=== PATIENT | female | born 1970 | race Caucasian/White ===

== ENCOUNTER 2024-12-03 10:46 | Outpatient (CLI) | payer OTHER, SELFPAY ==
--- NOTE | 2024-12-03 10:00 | ECG_ITS ---
Test Date: 2024-12-03 11:10:00 Measurements Intervals [place] Rate: 61 P: 57 SC: 180 QRS: 51 QRSD: 93 T: 49 QT: 382 QTc: 387 Interpretive Statements SINUS RHYTHM POSSIBLE LEFT ATRIAL ENLARGEMENT [-0.1mV P WAVE IN V1/V2] WARNING: DATA QUALITY MAY AFFECT INTERPRETATION No previous ECG available for comparison Electronically Signed On 12-03-2024 11:49:51 SPINDLE SETTER by Aditya Lynch M.D.
[2024-12-03 11:50] LABS: Hematocrit 42.4 % (37.0-47.0); Hemoglobin 14.2 g/dL (12.0-15.0)
--- OUTSIDE RECORDS SUMMARY | 2024-12-10 02:52 | XMS_ITS | Clinical Summary ---
Author Organization [facility] Address [address] [place] [address] Care Team Providers Care Floor Renovator Name Role Phone Olga Bonilla Primary Care Provider [phone] Source Comments [facility],non-owned Affiliates and Associated Physician Practices is amultiple site organization consisting of ambulatory clinics and hospital sitesin [place], [place], [place]. This disclosure is being madepursuant to the Care Everywhere program and may not contain all information available regarding this patient. Last updated 18.[facility] Allergies Active Allergy Reactions Criticality Noted Date Comments Phenol-Trimethobenzamide Other Low 07/07/2012 Love's palsy symptoms, , Love's palsy symptoms, Prochlorperazine Other Low 07/07/2012 Love's palsy symptoms Active Problems Problem Noted Date Diagnosed Date Personal history of other malignant neoplasm of skin 02/14/2015 Other seborrheic keratosis 07/07/2012 Melanocytic nevus 07/07/2012 Family History Medical History Relation Name Comments Cancer - Skin, Non Melanoma Father Allergy (Severe) Neg Hx Cancer - Skin, Melanoma Neg Hx Eczema Neg Hx Psoriasis Neg Hx Rashes/Skin Problems Neg Hx Relation Name Status Comments Father Social History Tobacco Use Types Packs/Day Years Used Date Smoking Tobacco: Never Smokeless Tobacco: Never Alcohol Use Standard Drinks/Week Comments Yes 0 (1 standard drink = 0.6 oz pur e alcohol) Sex and Gender Information Value Date Recorded Sex Assigned at Not on file Gender Identity Not on file Sexual Orientation Not on file Plan of Treatment Health Maintenance Due Date Last Done Comments COLOGUARD (AGES 45-75) - COL ON CA SCREENING 1969 COLON MONITORING 1969 COLONOSCOPY - COLON CA SCREENING 1969 CT COLONOGRAPHY - COLON CA SCREENING 1969 Colorectal Cancer Screening 1969 FIT - COLON CA SCREENING 1969 FLEX SIG - COLON CA SCREENING 1969 LIPID TESTING 1969 MAMMOGRAM 1969 PAP SMEAR 1969 HIV SCREENING 1984 HEPATITIS C SCREENING 03/31/1987 DTAP/TDAP/TD VACCINES (1 - Tdap) 1988 HEPATITIS B VACCINE (1 of 3 - 19+ 3-dose series) 1988 PNEUMOCOCCAL VACCINE 50+ (1 of 1 - PCV) 2019 ZOSTER VACCINE (1 of 2) 2019 COVID-19 VACCINE (2023-2 5 season) 2024 INFLUENZA VACCINE (#1) 2024 DEPRESSION SCREENING 11/18/2024 HIB VACCINE Aged Out No longer eligi ble based on patient's age to complete this topic HPV VACCINE Aged Out No longer eligi ble based on patient's age to complete this topic MENINGOCOCCAL (Group B) VACCINE Aged Out No longer eligible based on patient's age to complete this topic MENINGOCOCCAL VACCINE Aged Out No neal sonam eligible based on patient's age to complete this topic PNEUMOCOCCAL VACCINE Aged Out No long er eligible based on patient's age to complete this topic Care Teams Floor Renovator Relationship Specialty Start Date End Date Olga Bonilla DO PCP - General 02/14/15
--- OUTSIDE RECORDS SUMMARY | 2024-12-10 02:52 | XMS_ITS | Encounter Summary ---
Author Organization [facility] Address [address] [place] [address] Care Team Providers Care Survey Operations Director Name Role Phone Gian Gonsalves MD Primary Care Provider [phone] Encounter Details Date Type Department Care Team (Late st Contact Info) Description 08/04/1998 Outpatient Historical [facility] Internal Medicine - [facility] [address] [place] [address] Gian Helton MD [address] [facility] [address] [place] [address] Social History Tobacco Use Types Packs/Day Years Used Date Smoking Tobacco: Never Assessed Comments Unknown Sex and Gender Information Value Date Recorded Sex Assigned at Not on file Legal Sex Female 4:35 AM ALUMINUM WELDER Gender Identity Not on file Sexual Orientation Not on file documented as of this encounter Plan of Treatment Not on file documented as of this encounter Visit Diagnoses Not on filedocumented in this encounter Additional Health Concerns Infection Onset Date Last Indicated Resolved Time R/O COVID-19 09/28/2020 09/28/2020 09/30/2020 7:16 AM ALUMINUM WELDER documented as of this encounter Care Teams Survey Operations Director Relationship Specialty Start Date End Date Gian Gonsalves MD [address] [place] [address] PCP - General Internal Medicine 12/12/15 documented as of this encounter
--- OUTSIDE RECORDS SUMMARY | 2024-12-10 02:52 | XMS_ITS | Referral Summary ---
Author Organization [facility] Address [address] [place] [address] Care Team Providers Care Nutritionists Name Role Phone Olga Bonilla Primary Care Provider [phone] Source Comments [facility],non-owned Affiliates and Associated Physician Practices is amultiple site organization consisting of ambulatory clinics and hospital sitesin [place], [place], [place] and [place]. This disclosure is being madepursuant to the Care Everywhere program and may not contain all information available regarding this patient. Last updated 18.[facility] Allergies Active Allergy Reactions Criticality Noted Date Comments Phenol-Trimethobenzamide Other Low 07/07/2012 Love's palsy symptoms, , Love's palsy symptoms, Prochlorperazine Other Low 07/07/2012 Love's palsy symptoms Active Problems Problem Noted Date Diagnosed Date Personal history of other malignant neoplasm of skin 02/14/2015 Other seborrheic keratosis 07/07/2012 Melanocytic nevus 07/07/2012 Social History Tobacco Use Types Packs/Day Years Used Date Smoking Tobacco: Never Smokeless Tobacco: Never Alcohol Use Standard Drinks/Week Comments Yes 0 (1 standard drink = 0.6 oz pur e alcohol) Sex and Gender Information Value Date Recorded Sex Assigned at Not on file Gender Identity Not on file Sexual Orientation Not on file Plan of Treatment Not on file Care Teams Nutritionists Relationship Specialty Start Date End Date Olga Bonilla DO PCP - General 02/14/15
--- OUTSIDE RECORDS SUMMARY | 2024-12-10 02:52 | XMS_ITS | Encounter Summary ---
Author Organization [facility] Address [address] [place] [address] Care Team Providers Care Electronic Data Processing Auditor Name Role Phone Chad Olga Kacey Primary Care Provider [phone] Encounter Details Date Type Department Care Team (Late st Contact Info) Description 08/29/2022 Lab Requisition [facility] Care DermPath Lab [address] [facility] [place] [address] [place] [address] [facility] [address] [place] [address] Social History Tobacco Use Types Packs/Day Years [...] on file documented as of this encounter Procedures Procedure Name Priority Date/Time Associated Diagnosis Comments DERMATOPATHOLOGY Routine 08/28/2022 12:0 0 AM CDT documented in this encounter Results * DERMATOPATHOLOGY (08/28/2022 12:00 AM CDT) Case Report Dermatopathology Report ? Case: [id number] ? Authorizing Provider: ??Loretta Norman MD ? Collected: ? 08/28/2022 12:00 AM ? Ordering Location: ? [facility] DermPath Lab ?Received: ?08/29/2022 01:08 PM ? Pathologist: ? Ngozi Fernandes MD ? Specimens: ?? A) - Skin, left buttock ? B) - Skin, left lower abdomen ? 2 6:00 PM CDT DERMATOPATHOLOGY LABORATORY Final Diagnosis Specimen A. SKIN, left buttock: COMPOUND MELANOCYTIC NEVUS (D22.72) POST-INFLAMMATORY PIGMENT ALTERATION (L81.9) Specimen B. SKIN, left lower abdomen: INTRADERMAL MELANOCYTIC NEVUS (D22.5) DERMAL FIBROSIS (L90.5) 2 6:00 PM CDT DERMATOPATHOLOGY LABORATORY Clinical History A-B: Nevus R/O Atypia 2 6:00 PM CDT DERMATOPATHOLOGY LABORATORY Gross Description Specimen A: Received is one formalin filled container labeled with the patient's name and designated left buttock. The specimen consists of a shave biopsy measuring [id number]. Jar 0. Specimen B: Received is one formalin filled container labeled with the patient's name and designated left lower abdomen. The specimen consists of a shave biopsy measuring 4q3p8hq. Jar 0. 2 6:00 PM CDT DERMATOPATHOLOGY LABORATORY Microscopic Description Specimen A. SKIN, left buttock: There are nests of melanocytes at the dermal-epidermal junction and within the dermis. MART-1/Melan A highlights that this lesion os mostly nested. Sections also show abundant melanin within melanophages around the superficial vascular plexus. Specimen B. SKIN, left lower abdomen: There are nests of cytologically bland melanocytes within the dermis that mature with depth. The epidermis is unremarkable. There is focal dermal fibrosis. 2 6:00 PM CDT DERMATOPATHOLOGY LABORATORY Disclaimer An external and internal positive and negative controls are appropriate for the histochemical, immunohistochemical and immunofluorescence stain(s) in this case (if any), except where stated explicitly. The performance characteristics of the stain(s) cited in this report were developed and its performance characteristic determined by the Dermatopathology Laboratory at [facility], directed by Dr. Patito Fernandes. These tests need not be, and therefore are not, approved by the [place] Food and Drug Administration. The tests are used for clinical purposes. Billing Codes Specimen Charges Stain Charges 56655 82681 1 1 47218 1 2 6:00 PM CDT DERMATOPATHOLOGY LABORATORY Embedded Images 2 6:00 PM CDT DERMATOPATHOLOGY LABORATORY Pathology/Cytology TISSUE SPECIMEN FROM SKIN / Unknown 08/28/2022 08/29/2022 1:08 PM CDT Miscellaneous samples (specimen) TISSUE SPECIMEN FROM SKIN / Unknown 08/28/2022 08/29/2022 1:08 PM CDT Loretta Norman MD LAB - PATHOLOGY/CYTO LOGY ORDERABLES DERMATOPATHOLOGY LABORATORY [facility] - Department of Dermatology [address], [address] [phone] documented in this encounter Visit Diagnoses Not on filedocumented in this encounter Care Teams Electronic Data Processing Auditor Relationship Specialty Start Date End Date Olga Bonilla DO PCP - General 02/14/15 documented as of this encounter
--- OUTSIDE RECORDS SUMMARY | 2024-12-10 02:52 | XMS_ITS | Encounter Summary ---
Author Organization [facility] Address [address] [place] [address] Care Team Providers Care Vacuum Cleaner Repair Person Name Role Phone Gian Gonsalves MD Primary Care Provider [phone] Encounter Details Date Type Department Care Team (Late st Contact Info) Description 07/09/2008 Outpatient Historical [facility] Eliceo Vergara MD [address] [place] [address] Cervicalgia Social History Tobacco Use Types Packs/Day Years Used Date Smoking Tobacco: Never Alcohol Use Standard Drinks/Week Comments Yes 0 (1 standard drink = 0.6 oz pur e alcohol) Rarely Comments No Sex and Gender Information Value Date Recorded Sex Assigned at Not on file Legal Sex Female 4:35 AM HAIR MACHINE OPERATOR Gender Identity Not on file Sexual Orientation Not on file documented as of this encounter Plan of Treatment Not on file documented as of this encounter Visit Diagnoses Diagnosis Cervicalgia documented in this encounter Additional Health Concerns Infection Onset Date Last Indicated Resolved Time R/O COVID-19 09/28/2020 09/28/2020 09/30/2020 7:16 AM HAIR MACHINE OPERATOR documented as of this encounter Care Teams Vacuum Cleaner Repair Person Relationship Specialty Start Date End Date Gian Gonsalves MD [address] [place] [address] PCP - General Internal Medicine 12/12/15 documented as of this encounter
--- OUTSIDE RECORDS SUMMARY | 2024-12-10 02:52 | XMS_ITS | Encounter Summary ---
Author Organization [facility] Address [address] [place] [address] Care Team Providers Care Senior Cisco Network Engineer Name Role Phone Chad Olga Kacey Primary Care Provider [phone] Encounter Details Date Type Department Care Team (Late st Contact Info) Description 03/03/2021 Lab Requisition [facility] Care DermPath Lab [address] [facility] [place] [address] [place] [address] [facility] [address] [place] [address] Social History Tobacco Use Types [...] Priority Date/Time Associated Diagnosis Comments DERMATOPATHOLOGY Routine 03/01/2021 3:33 AM CDT documented in this encounter Results * DERMATOPATHOLOGY (03/01/2021 3:33 AM CDT) Case Report Dermatopathology Report ? Case: [id number] ? Authorizing Provider: ??Loretta Norman MD ? Collected: ? 03/01/2021 03:33 AM ? Ordering Location: ? [facility] DermPath Lab ?Received: ?03/03/2021 08:04 AM ? Pathologist: ? Ngozi Fernandes MD ? Specimen: ?Skin, medial thigh ? 1 1:30 PM CDT DERMATOPATHOLOGY LABORATORY Final Diagnosis Specimen A. SKIN, medial thigh: ACUTE TO SUBACUTE SPONGIOTIC DERMATITIS WITH EOSINOPHILS (L30.8) (see microscopic description and comment) 1 1:30 PM CDT DERMATOPATHOLOGY LABORATORY Clinical History ACD vs other. 1 1:30 PM CDT DERMATOPATHOLOGY LABORATORY Gross Description Specimen A: Received is one formalin filled container labeled with the patient's name and designated medial thigh. The specimen consists of a punch biopsy measuring [id number], bisected. Jar 0. 1 1:30 PM CDT DERMATOPATHOLOGY LABORATORY Microscopic Description Specimen A. SKIN, medial thigh: There is focal parakeratosis and spongiosis. In the dermis there is a mainly superficial perivascular lymphohistiocytic inflammatory infiltrate with eosinophils. COMMENT: The histological differential diagnosis includes a contact dermatitis and an eczematous drug eruption. 1 1:30 PM CDT DERMATOPATHOLOGY LABORATORY Disclaimer An external and internal positive and negative controls are appropriate for the histochemical, immunohistochemical and immunofluorescence stain(s) in this case (if any), except where stated explicitly. The performance characteristics of the stain(s) cited in this report were developed and its performance characteristic determined by the Dermatopathology Laboratory at [facility], directed by Dr. Patito Fernandes. These tests need not be, and therefore are not, approved by the [place] Food and Drug Administration. The tests are used for clinical purposes. Billing Codes Specimen Charges Stain Charges 86909 1 1 1:30 PM CDT DERMATOPATHOLOGY LABORATORY Embedded Images 1 1:30 PM CDT DERMATOPATHOLOGY LABORATORY Pathology/Cytolo gy TISSUE SPECIMEN FROM SKIN / Unknown 03/01/2021 3:33 AM CDT 03/03/2021 8:04 AM CDT Loretta Norman MD LAB - PATHOLOGY/CYTO LOGY ORDERABLES DERMATOPATHOLOGY LABORATORY [facility] [place] [facility] - Department of Dermatology [facility] Specialized Medicine [address] [place] [address], [address] [phone] documented in this encounter Visit Diagnoses Not on filedocumented in this encounter Care Teams Senior Cisco Network Engineer Relationship Specialty Start Date End Date Olga Bonilla DO PCP - General 02/14/15 documented as of this encounter
--- OUTSIDE RECORDS SUMMARY | 2024-12-10 02:52 | XMS_ITS | Patient Health Summary ---
Author Organization [facility] Address [address] [place] [address] Care Team Providers Care Biomedical Specialist Name Role Phone Olga Bonilla Primary Care Provider [phone] [facility] from [facility],non-owned Affiliates and Associated Physician Practices is amultiple site organization consisting of ambulatory clinics and hospital sitesin [place], [place], [place]. This disclosure is being madepursuant to the Care Everywhere program and may not contain all information available regarding this patient. Last updated 18.[facility] Allergies * Phenol-Trimethobenzamide(Other) -Low Criticality * Prochlorperazine(Other) -Low Criticality Active Problems Problem Noted Date Diagnosed Date [...] on file Sexual Orientation Not on file Procedures * DERMATOPATHOLOGY(Performed 08/28/2022) * DERMATOPATHOLOGY(Performed 03/01/2021) * DERMATOPATHOLOGY(Performed 02/02/2019) * DERMATOPATHOLOGY(Performed 12/30/2017) * DERMATOPATHOLOGY(Performed 05/19/2013) * DERMATOPATHOLOGY(Performed 07/07/2012) Results * DERMATOPATHOLOGY (08/28/2022 12:00 AM CDT) Only the most recent of6 resultswithin the time period is included. Case Report Dermatopathology Report ? Case: [id number] ? Authorizing Provider: ??Loretta Norman MD ? Collected: ? 08/28/2022 12:00 AM ? Ordering Location: ? [facility] DermPath Lab ?Received: ?08/29/2022 01:08 PM ? [...] (D22.5) DERMAL FIBROSIS (L90.5) 2 6:00 PM T DERMATOPATHOLOGY LABORATORY Clinical History A-B: Nevus R/O Atypia 2 6:00 PM CDT DERMATOPATHOLOGY LABORATORY Gross Description Specimen A: Received is one formalin filled container labeled with the patient's name and designated left buttock. The specimen consists of a shave biopsy measuring [id number]. Jar 0. Specimen B: Received is one formalin filled container labeled with the patient's name and designated left lower abdomen. The specimen consists of a shave biopsy measuring 2e2o8pj. Jar 0. 2 6:00 PM CDT DERMATOPATHOLOGY [...] is unremarkable. There is focal dermal fibrosis. 6:00 PM CDT DERMATOPATHOLOGY LABORATORY Disclaimer An external and internal positive and negative controls are appropriate for the histochemical, immunohistochemical and immunofluorescence stain(s) in this case (if any), except where stated explicitly. The performance characteristics of the stain(s) cited in this report were developed and its performance characteristic determined by the Dermatopathology Laboratory at [facility], directed by Dr. Patito Fernandes. These tests need not be, and therefore are not, approved by the [place] Food and Drug Administration. The tests are used for clinical purposes. Billing Codes Specimen Charges Stain Charges 78589 75854 1 1 36429 1 2 6:00 PM CDT DERMATOPATHOLOGY LABORATORY Embedded Images 2 6:00 PM CDT DERMATOPATHOLOGY LABORATORY Pathology/Cytology TISSUE SPECIMEN FROM SKIN / Unknown 08/28/2022 08/29/2022 1:08 PM CDT Miscellaneous samples (specimen) TISSUE SPECIMEN FROM SKIN / Unknown 08/28/2022 08/29/2022 1:08 PM CDT Loretta Norman MD LAB - PATHOLOGY/CYTO LOGY ORDERABLES DERMATOPATHOLOGY LABORATORY [facility] - Department of Dermatology [facility] Specialized Medicine [address] [place] [address], [address] [phone] Care Teams Biomedical Specialist Relationship Specialty Start Date End Date Olga Bonilla DO PCP - General 02/14/15
--- OUTSIDE RECORDS SUMMARY | 2024-12-10 02:52 | XMS_ITS | Data Portability ---
Author Organization [facility], Main Office Address [address] [place] [address] Assessment Encounter Date Assessment Date Assessment LastModified by Organization Details LastModified Time 07/02/2023 07/02/2023 Annual gynecological exam performed. Patient will come back in a year unless there are new symptoms. Not available 07/02/2023 10:30:53 Plan of Treatment Reminders Order Date Submit Date Provider Last Modified By Organization Details Last Modified Time Details Appointments PCP WELL WOMAN 025 11:30AM DANDRE FERRER NP Not available Not available Not available Lab None recorde d. Referral None recorde d. Procedures None recorde d. Surgeries None recorde d. Imaging None recorde d. Medication Orders None recorde d. Patient TargetsNo targets recorded. Patient Instructions Encounter Date Encounter Id Patient Instructions Last Modified By Organization Details Last Modified Time 07/02/2023 [id number] Mammogram today, schedule BMD, Pap today [email or web address] Not available 07/02/2023 22:09:17 Discussed genera l health and wellness. Likes pellets and doing well. Labs monitored. [email or web address] Not available 07/02/2023 22:08:08 Reason for Referral None Reported. Results Created Date Observation Date Name Description Value Unit Range Abnormal Flag Note LastModifiedBy Organization Detail LastModifiedTime 07/02/2007/04/2023 THINP REP TIS PAP AND HPV MRNA E6/E7 WITH REFLE X TO HPV 16,18 /45 clinical information: normal None given Not Available [employer] [facility] [address] [address], [place], [address], 07/04/2023 11:20:28 07/02/202023 THINP REP TIS PAP AND HPV MRNA E6/E7 WITH REFLE X TO HPV 16,18 /45 LMP: normal NONE GIVEN Not Available [address], [address], 07/04/2023 11:20:28 07/02/20 23 07/04/2023 THINP REP TIS PAP AND HPV MRNA E6/E7 WITH REFLE X TO HPV 16,18 /45 prev. Pap: normal NONE GIVEN Not Available [address] [place], [address], 07/04/2023 11:20:28 07/02/20 23 07/04/2023 THINP REP TIS PAP AND HPV MRNA E6/E7 WITH REFLE X TO HPV 16,18 /45 prev. BX: normal NONE GIVEN Not Available [address], [address], 07/04/2023 11:20:28 07/02/20 23 07/04/2023 THINP REP TIS PAP AND HPV MRNA E6/E7 WITH REFLE X TO HPV 16,18 /45 source: normal Vagin a Not Available [address], [address], 07/04/2023 11:20:28 07/02/20 23 07/04/2023 THINP REP TIS PAP AND HPV MRNA E6/E7 WITH REFLE X TO HPV 16,18 /45 statement of adequacy: normal SATIS FACTO RY FOR EVALU ATION Not Available [address], [address], 07/04/2023 11:20:28 07/02/20 23 07/04/2023 THINP REP TIS PAP AND HPV MRNA E6/E7 WITH REFLE X TO HPV 16,18 /45 interpretati on/result: normal Cytol ogy Resul ts: Negat chanel for intra epith elial lesio n or crystal strong . Not Available [address] [place], [address], 07/04/2023 11:20:28 07/02/20 23 07/04/2023 THINP REP TIS PAP AND HPV MRNA E6/E7 WITH REFLE X TO HPV 16,18 /45 comment: normal This Pap test has been evalu ated with comppartha sullivan [employer] ology . Not Available [place] [address] [place], [address], 07/04/2023 11:20:28 07/02/20 23 07/04/2023 THINP REP TIS PAP AND HPV MRNA E6/E7 WITH REFLE X TO HPV 16,18 /45 cytotechnolo gist: normal MEF, CT( CP) CT scree tiffany locat ion: [place] [address] [place] [address] Not Available [address] [address] [place], [address], 07/04/2023 11:20:28 07/02/20 23 07/04/2023 THINP REP TIS PAP AND HPV MRNA E6/E7 WITH REFLE X TO HPV 16,18 /45 comment EXPLA NATOR Y NOTE: The Pap is a scree tiffany test for cervi huma cance r. It is not a diagn ostic test and is subje ct to false negat chanel and false posit chanel resul ts. It is most relia ble when a satis facto ry sampl e, regul josh obtai silvia, is submi tted with relev ant clini huma findi ngs and histo ry, and when the Pap resul t is evalu ated along with histo elfego and curre nt clini huma infor matio n. Not Available [address] [address] [address], [place], [address], 07/04/2023 11:20:28 07/02/20 23 07/04/2023 THINP REP TIS PAP AND HPV MRNA E6/E7 WITH REFLE X TO HPV 16,18 /45 HPV MRNA E6/E7 Not Detect ed not detect ed normal Metho dolog y: Trans cript ion-M ediat ed Ampli ficat ion This assay detec ts E6/E7 viral messe nger RNA (mRNA ) from 14 high- risk HPV types (16,1 8,31, 33,35 ,39,4 5,51, 52,56 ,58,5 9,66, 68). Cervi huma sourc es are requi red for HPV testi ng. If a vagin al sourc e from a patie nt who has had a total hyste recto my with remov al of cervi x was submi tted, pleas e conta ct the testi ng labor atory for alter nativ e testi ng optio ns. For addit ional infor tamica pfeiffer e refer to http: //[facility] jasmina garcia.annabelle stdia gnost ics.c om/fa q/FAQ 129v1 (This link if provi ded for infor darshana garcia/ educa nicholas richard purpo ses only. ) Not Available [facility] [address] [address], [place], [address], 07/04/2023 11:20:28 07/02/20 23 07/02/2023 MAMMO , scree tiffany, bilat eral, w/ CAD No observ ation record ed. [address], [place], [address], 07/08/2023 14:33:20 10/23/20 23 10/23/2023 bone densi ty RAD rmuckerman [facility] [employer] [id number] 11/03/2023 18:58:20 07/15/20 24 07/08/2024 MAMMO , scree tiffany, bilat eral, w/ CAD No observ ation record ed. [address], [place], [address], 07/30/2024 04:02:15 Result Notes None recorded. Problems Name Problem SNOMED Code Status Onset Date Resolution Date Notes Provider Name and Address Organization Details Recorded Time Reduced libido 6589021 Active 2022 Liz John [facility] 3 09:45:43 Menorrhagia 713633148 Active 2022 [facility] 09:45:51 Osteopenia 867996970 [place] 20[place] [address], [place], [address], [facility] 18:56:49 Problem Notes None recorded. Procedures Surgical History Date Name Laterality Status Provider Name and Address Organization Details Recorded Time 04/12/20 Date of Last Mammogram completed [facility] 06/25/2023 10:14:49 04/12/20 Date of Last Pap Smear completed [facility] 06/25/2023 10:15:42 endometrial ablation completed [facility] 06/25/2023 10:20:34 section completed [facility] 06/25/2023 10:20:43 hysteroscopy completed [facility] 06/25/2023 10:20:54 Dilation and curettage completed [facility] 06/25/2023 10:21:05 Imaging Results Imaging Date Name Status LastModified by Organiz ation Details LastModified Time 07/02/2023 MAMMO, screening, bilateral, w/ CAD completed [place] [address] [facility] [address], [place], [address], 07/08/2023 14:33:20 10/23/2023 bone density completed [facility] [employer] [id number] 11/03/2023 18:58:20 07/08/2024 MAMMO, screening, bilateral, w/ CAD active [place] [address], [place], [address], 07/30/2024 04:02:15 Procedure Notes None recorded. Medical Equipment None Reported. Allergies Allergen ID Allergen Name Allergen Category Reaction Reaction Severity Criticality Documentation Date Start Date Code Code System Note Provider Name and Address Organization Details Recorded Time [id number] 29b50 Compazine medicatio n other Not available Not available 06/25/2023 24164 6 RxNorm bells palsy Not Available Not Available Not Available [id number] 29b50 Tigan medicatio n other Not available Not available 06/25/2023 39208 8 RxNorm bells palsy Not Available Not Available Not Available Medications Name Sig Start Date Stop Date Status Note LastModified by Organization Details LastModified Time spironolacto ne 100 mg tablet Take 1 tablet every day by oral route. 07/01 completed Not Available Not Available Not Available Rosser Thyroid 15 mg tablet active Not Available Not Available No t Available [facility] Thyroid 30 mg tablet Take 1 tablet every day by oral route. active Not Available Not Available No t Available progesterone micronized 100 mg capsule TAKE 1 CAPSULE NIGHTLY active Not Available Not Available No t Available progesterone 100 mg vaginal suppository Insert by vaginal route. active Not Available Not Available No t Available Vitals Date Recorded Body height Body mass index (BMI) Body weight Systolic blood pressure Diastolic blood pressure Provider Name and Address Organization Details Last Updated DateTime 07/02/2023 157.48 cm 22.9 kg/m2 59243.05 g 120 mm[Hg] 62 mm[Hg] [facility] 10:31:13 Social History Question Answer Notes LastModified by Organizat ion Details LastModified Time Tobacco Smoking Status Never Smoker [facility] 06/25/2023 10:19:55 What Is Your Level Of Alcohol Consumption? Occasional Information not available 07/02/2023 How Many Times Per Week Do You Consume Alcohol? 1-2 Times Per Week Information not available 07/02/2023 Are You Deaf Or Do You Have Serious Difficulty Hearing? No Information not available 07/02/2023 How Many Times Per Week Do You Exercise? 5-7 Times Per Week Information not available 07/02/2023 Marital Status Informatio n not available 07/02/2023 What Is Your Relationship Status? Information not available 07/02/2023 Are You Sexually Active? Yes Information not available 07/02/2023 Do You Use Any Illicit Or Recreational Drugs? No Information not available 07/02/2023 Sex: Unknown Functional Status Question Answer Note LastModified by Organization D etails LastModified Time What is your exercise level? Moderate Information not available 07/02/2023 Mental Status None recorded. Family History Relationship Description Onset Age of this Age Resolved Age Notes LastModified by Organization Details LastModified Time Paternal Grandmother History of malignant neoplasm of colon Not available 06/25 10:18:06 Unspecified Relation Family history of Cardiovascul ar disease Not available 06/2023 10:18:22 Unspecified Relation Family history of Hypertension Not available 10:18:38 Medical History Condition Response Decreased Libido Y Menorrhagia Y Gynecological History Statement/Question Response Date of Last Pap Smear 04/12/2022 Date of Last Mammogram 04/12/2022 Obstetrics History GPAL:G 3 P 3 0 0 3 Type Value Full Term 3 Living 3 Total 3 Past Encounters Encounter ID Performer Location Encounter Start Date Encounter Closed Date Diagnosis/Indication Diagnosis SNOMED-CT Code Diagnosis ICD10 Code Diagnosis Note [id number] Mary Brown Main Office [address] [facility] [address] [place] [address] 07/02/2023 10:24:41 07/02/2023 11:11:48 Health Concerns Section Related Observation LastModified by Organization Detai ls LastModified Time None Recorded Concern Status LastModified by Organization Details LastModified Time None Recorded Advance Directives Directive None Recorded Payers Encounter Date Sequence Insurance Name Policy Number Policy Warren Covered Member ID Warren Member ID Guarantor Name 07/02/2023 1 [place] [id number] Mary Dawn [id number] Notes Date Note Type Note Provider Name and Address Organization Details Recorded Time 07/02/2023 text/html Annual GYNReport ed bypatient.History: no gynecologic complaints Urinary symptoms:no hematuria; no incontinence Vulva:no genital lesion Vagina:normal vaginal discharge Breast:no breast pain; no breast lump; no nipple discharge Sexual complaints:no sexual complaints; no pain during intercourse; normal libido Menopausal Symptoms:no menopausal symptoms; normal vaginal lubrication Mary Brown [facility] 07/02/2023 22:09:56 OBGyn Episode Ob Episode Information Episode Created Date Number of Fetuses Patient Bloodtype Patient rh Status Prepregnancy Weight lbs Domestic Partner Domestic Partner Phone Father Name Industrial Technician Status 06/25/20 23 1 CLOSED Fetus Data First Name Last Name Admitted to NICU Weight (g) Sex Living Outcome Pediatric Complications Fetus ID Race Codes Race Delivery Type 3259.96 [phone] Full Term 2916 Low Transvers e - induced Nabeel Calculation Initial Nabeel Date Initial Exam Date Initial Exam Provider Initial Ultrasound Date Last Menstrual Period Date Ultra Sound Weeks Gestation 0 Eighteen To Twenty Week Nabeel Update Ultra Sound Date Fundal Height At Umbil Quickening Date Ultra Sound Latest Weeks Gestation Final Nabeel Confirmed By Final Nabeel Confirmed Date Final Nabeel Date Ultra Sound Latest Days Gestation 0 0 Menstrual History Last Menstrual Date Menses Monthly On Bcp Conception Prior Menses Frequency Hcg Plus Date Menarche Onset Age Delivery Information Delivery Date Delivery Type Labor Anesthesia Weeks Gestation Incision Type Labor Labor Length Hrs Delivered By Post Complications Tubal Sterilization Discharge Date Comments 0 Discharge Information Feeding Method Contraceptive Method Maternal HG B and HCT Levels Ob Episode Information Episode Created Date Number of Fetuses Patient Bloodtype Patient rh Status Prepregnancy Weight lbs Domestic Partner Domestic Partner Phone Father Name Industrial Technician Status 06/25/20 23 1 CLOSED Fetus Data First Name Last Name Admitted to NICU Weight (g) Sex Living Outcome Pediatric Complications Fetus ID Race Codes Race Delivery Type 3345.24 1 Full Term 2915 Low Transvers e - induced Nabeel Calculation Initial Nabeel Date Initial Exam Date Initial Exam Provider Initial Ultrasound Date Last Menstrual Period Date Ultra Sound Weeks Gestation 0 Eighteen To Twenty Week Nabeel Update Ultra Sound Date Fundal Height At Umbil Quickening Date Ultra Sound Latest Weeks Gestation Final Nabeel Confirmed By Final Nabeel Confirmed Date Final Nabeel Date Ultra Sound Latest Days Gestation 0 0 Menstrual History Last Menstrual Date Menses Monthly On Bcp Conception Prior Menses Frequency Hcg Plus Date Menarche Onset Age Delivery Information Delivery Date Delivery Type Labor Anesthesia Weeks Gestation Incision Type Labor Labor Length Hrs Delivered By Post Complications Tubal Sterilization Discharge Date Comments 6 Discharge Information Feeding Method Contraceptive Method Maternal HG B and HCT Levels Ob Episode Information Episode Created Date Number of Fetuses Patient Bloodtype Patient rh Status Prepregnancy Weight lbs Domestic Partner Domestic Partner Phone Father Name Industrial Technician Status 06/25/20 23 1 CLOSED Fetus Data First Name Last Name Admitted to NICU Weight (g) Sex Living Outcome Pediatric Complications Fetus ID Race Codes Race Delivery Type [phone] Full Term 2914 Low Transvers e - induced Nabeel Calculation Initial Nabeel Date Initial Exam Date Initial Exam Provider Initial Ultrasound Date Last Menstrual Period Date Ultra Sound Weeks Gestation 0 Eighteen To Twenty Week Nabeel Update Ultra Sound Date Fundal Height At Umbil Quickening Date Ultra Sound Latest Weeks Gestation Final Nabeel Confirmed By Final Nabeel Confirmed Date Final Nabeel Date Ultra Sound Latest Days Gestation 0 0 Menstrual History Last Menstrual Date Menses Monthly On Bcp Conception Prior Menses Frequency Hcg Plus Date Menarche Onset Age Delivery Information Delivery Date Delivery Type Labor Anesthesia Weeks Gestation Incision Type Labor Labor Length Hrs Delivered By Post Complications Tubal Sterilization Discharge Date Comments 4 Discharge Information Feeding Method Contraceptive Method Maternal HG B and HCT Levels
--- OUTSIDE RECORDS SUMMARY | 2024-12-10 02:52 | XMS_ITS | Encounter Summary ---
Author Organization [facility] Address [address] [place] [address] Care Team Providers Care Facility Administrator Name Role Phone Chad Olga Kacey Primary Care Provider [phone] Encounter Details Date Type Department Care Team (Late st Contact Info) Description 02/03/2019 Lab Requisition [facility] Care DermPath Lab [address] [facility] [place] [address] [place] [address] [facility] [address] [place] [address] Social History Tobacco Use Types [...] Priority Date/Time Associated Diagnosis Comments DERMATOPATHOLOGY Routine 02/02/2019 12:0 0 AM CDT documented in this encounter Results * DERMATOPATHOLOGY (02/02/2019 12:00 AM CDT) Case Report Dermatopathology Report ? Case: [id number] ? Authorizing Provider: ??Loretta Norman MD ? Collected: ? 02/02/2019 12:00 AM ? Pathologist: ? Ngozi Fernandes MD ? Received: ?02/03/2019 02:00 PM ? Specimen: ?Skin, right mid back ? 9 12:23 PM CDT DERMATOPATHOLOGY LABORATORY Final Diagnosis Specimen A. SKIN, right mid back: LENTIGINOUS MELANOCYTIC NEVUS, COMPOUND TYPE, IRRITATED (COMPOUND MELANOCYTIC NEVUS WITH ARCHITECTURAL DISORDER) (D22.5) 9 12:23 PM CDT DERMATOPATHOLOGY LABORATORY Clinical History Atypical nevus R/O MM. 12:23 PM CDT DERMATOPATHOLOGY LABORATORY Gross Description Specimen A: Received is one formalin filled container labeled with the patient's name and designated right mid back. The specimen consists of a shave biopsy measuring [id number]. Jar 0. 12:23 PM CDT DERMATOPATHOLOGY LABORATORY Microscopic Description Specimen A. SKIN, right mid back: This is a compound nevus. There is melanin pigment in the stratum corneum. There is architectural disorder characterized by a lentiginous proliferation of melanocytes between irregular nevus nests of cells along the dermal epidermal junction. There is underlying fibroplasia of the papillary dermis. The intradermal component is bland in appearance and matures with depth. (Compound Jayy's Nevus or Compound Dysplastic Nevus) 9 12:23 PM CDT DERMATOPATHOLOGY LABORATORY Disclaimer An external and internal positive and negative controls are appropriate for the histochemical, immunohistochemical and immunofluorescence stain(s) in this case (if any), except where stated explicitly. The performance characteristics of the stain(s) cited in this report were developed and its performance characteristic determined by the Dermatopathology Laboratory at [facility], directed by Dr. Patito Fernandes. These tests need not be, and therefore are not, approved by the [place] Food and Drug Administration. The tests are used for clinical purposes. Billing Codes Specimen Charges Stain Charges 08704 1 9 12:23 PM CDT DERMATOPATHOLOGY LABORATORY Embedded Images 9 12:23 PM CDT DERMATOPATHOLOGY LABORATORY Pathology/Cytolog y TISSUE SPECIMEN FROM SKIN / Unknown 02/02/2019 02/03/2019 2:00 PM CDT Loretta Norman MD LAB - PATHOLOGY/CYTO LOGY ORDERABLES DERMATOPATHOLOGY LABORATORY [facility] - Department of Dermatology [address] [place] [address] 5th Floor Lab [address] [phone] documented in this encounter Visit Diagnoses Not on filedocumented in this encounter Care Teams Facility Administrator Relationship Specialty Start Date End Date Olga Bonilla DO PCP - General 02/14/15 documented as of this encounter
--- OUTSIDE RECORDS SUMMARY | 2024-12-10 02:52 | XMS_ITS | Encounter Summary ---
Author Organization [employer] Address [address] [place] [address] Care Team Providers Care Cone Tender Name Role Phone Gian Gonsalves MD Primary Care Provider [phone] Encounter Details Date Type Department Care Team (Latest Contact Info) Description 11/29/1999 Inpatient Historical HIS PATIENT IN A BED Tab Alonso MD NO ADDRESS ON FILE Previous delivery, delivered, with or without mention of antepartum condition (Primary Dx) Social History Tobacco Use Types Packs/Day Years Used Date Smoking Tobacco: Never Assessed Comments Unknown Sex and Gender Information Value Date Recorded Sex Assigned at Not on file Legal Sex Female 4:35 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 Gender Identity Not on file Sexual Orientation Not on file documented as of this encounter Plan of Treatment Not on file documented as of this encounter Visit Diagnoses Diagnosis Previous delivery, delivered, with or without mention of antepartum condition- Primary documented in this encounter Additional Health Concerns Infection Onset Date Last Indicated Resolved Time R/O COVID-19 09/28/2020 09/28/2020 09/30/2020 7:16 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 documented as of this encounter Care Teams Cone Tender Relationship Specialty Start Date End Date Gian Gonsalves MD [address] [place] [address] PCP - General Internal Medicine 12/12/15 documented as of this encounter
--- OUTSIDE RECORDS SUMMARY | 2024-12-10 02:52 | XMS_ITS | Encounter Summary ---
Author Organization [facility] Address [address] [place] [address] Care Team Providers Care Equipment Oiler Name Role Phone Gian Gonsalves MD Primary Care Provider [phone] Encounter Details Date Type Department Care Team (Late st Contact Info) Description 07/11/2005 Outpatient Historical [facility] Internal Medicine - [place] [address] [place] [address] Gian Helton MD [address] [facility] [address] [place] [address] Social History Tobacco Use Types Packs/Day Years Used Date Smoking Tobacco: Never Assessed Comments Unknown Sex and Gender Information Value Date Recorded Sex Assigned at Not on file Legal Sex Female 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
--- OUTSIDE RECORDS SUMMARY | 2024-12-10 02:52 | XMS_ITS | Encounter Summary ---
Author Organization [facility] Address [address] [place] [address] Care Team Providers Care Vacuum Extractor Operator Name Role Phone Gian Gonsalves MD Primary Care Provider [phone] Encounter Details Date Type Department Care Team (Late st Contact Info) Description 12/05/[address] [facility] Internal Medicine - [place] [address] [place] [address] Gian Helton MD [address] [place] [address] Social History Tobacco Use Types Packs/Day Years Used Date Smoking Tobacco: Never Assessed Comments Unknown Sex and Gender Information Value Date Recorded Sex Assigned at Not on file Legal Sex Female 4:35 AM FILENET P8 DEVELOPER Gender Identity Not on file Sexual Orientation Not on file documented as of this encounter Progress Notes * Gian Helton MD - 04/13/2008 12:25 PM CDT TIME:11:01 am PATIENT`S HOME PHONE: PATIENT`S WORK PHONE: PATIENT`S INSURANCE: [address] [address] [employer] BLUE [employer] WHO TOOK THE CALL: Rachel Agosto A GENERAL INFORMATION PATIENT STATUS: Established Patient. LAST VISIT: 09/10/05 PCP: ileana. ALTERNATIVE PHONE NUMBER: [phone] or cell [phone] WHO CALLED: Patient called. CURRENT [facility] LIST: [facility] NUMBER: [phone] SECTION 1: pt leaving to go to [employer] agency suggested that they take cipro with them just in case they needed an antibiotic for bacteria-please advise REQUESTED ACTION rebecca 12/05/06 at 11:03 am: MEDICATION REQUEST: Patient wants medications and can not come in. DOCTOR`S RESPONSE: rohini 12/05/06 at 01:09 pm MEDICATIONS: Call in to Pharmacy CIPRO ORAL TABLET 500 MG, 1 Two Times A Day, 14 Dispensed, status: NEW PRESCRIPTION, 12/05/2006. 12/05 =spoke w/ pharm./sk Electronically Signed by: Elaine Samayoa on November documented in this encounter Plan of Treatment Not on file documented as of this encounter Visit Diagnoses Not on filedocumented in this encounter Additional Health Concerns Infection Onset Date Last Indicated Resolved Time R/O COVID-19 09/28/2020 09/28/2020 09/30/2020 7:16 AM FILENET P8 DEVELOPER documented as of this encounter Care Teams Vacuum Extractor Operator Relationship Specialty Start Date End Date Gian Gonsalves MD [address] [place] [address] PCP - General Internal Medicine 12/12/15 documented as of this encounter
--- OUTSIDE RECORDS SUMMARY | 2024-12-10 02:52 | XMS_ITS | Clinical Summary ---
Author Organization [facility] Address [address] [place] [address] Phone Care Team Providers Care Machine Bender Name Role Phone Gian Gonsalves MD Primary Care Provider [phone] Allergies Active Allergy Reactions Criticality Noted Date Comments Prochlorperazine Other (See Comments) 5 Pseudo Love's Palsey Trimethobenzamide Hcl Other (See Comments) 06/19 Pseudo Love's Palsey Medications MULTI-VITAMIN Oral Tab Take 1 Tab by mouth daily. Active VITAMIN E 600 unit Oral Cap Take 600 Units by mouth daily. Active CALCIUM + D 600 (1,500)-200 mg-unit Oral Tab Take 1 Tab by mouth daily. Active cyanocobalamin 1,000 mcg Tablet Take 1,000 mcg by mouth daily. Active zinc gluconate 50 mg Tablet Take by mouth daily. Active progesterone micronized (PROMETRIUM) 100 mg Capsule 07/25/2022 Acti ve Hoffman Thyroid 15 mg tablet Take 15 mg by mouth daily. Patient taking 45mcg 06/11/2022 Active vitamin D3/vitamin K2, MK4, (K2 PLUS D3 ORAL) Take by mouth. Active omega-3 fatty acids-fish oil 300-1,000 mg Capsule Take 1 Capsule by mouth daily. Active Active Problems Problem Noted Date Diagnosed Date Heart murmur 02/22/2016 History of basal cell carcinoma 12/12/2015 Resolved Problems Problem Noted Date Diagnosed Date Resolved Date Arthralgia 07/09/2008 12/12/2015 Neck pain 07/09/2008 12/14/2009 Routine physical examination 07/09/2008 12/12/2015 Routine general medical exam ination at a health care facility 07/11/2005 07/09/2008 Dermatophytosis of nail 07/11/200506/19 Encounters Date Type Department Care Team Description 12/08/2024 External Device Data STL ABSTRACTION Provider, Abstract 11/24/2024 External Device Data STL ABSTRACTION Provider, Abstract 09/16/2024 External Device Data STL ABSTRACTION Provider, Abstract from Last 3 Months Immunizations Immunization Administration Dates Next Due (ADACEL/BOOSTRIX)(10 YR UP) TDAP VACCINE, 0.5ML, IM 08/22/2020,12/14/2009 Family History Medical History Relation Name Comments Arthritis-osteo Brother 2 Healthy Daughter Arthritis-rheumatoid Father Shaan Carmona Diabetes Father Shaan Carmona Parkinson's Disease Father Shaan Carmona Stroke Father Shaan Carmona Heart Disease Maternal Grandfather Lisa Henao Healthy Mother Paula Carmona Diabetes Paternal Grandfather Jaiden Graves Heart Disease Paternal Grandfather Jaiden Carmona Brain Cancer Paternal Grandmother Arthritis-osteo Sister 2 Healthy Son 1 Healthy Son 2 Colon Cancer Neg Hx Relation Name Status Comments Brother 1 Alive Brother 2 Alive Daughter Alive Father Shaan Carmona Maternal Grandfather Lisa Henao Maternal Grandmother Mother Paula Carmona Alive Paternal Grandfather Jaiden Carmona Paternal Grandmother Sister 1 Alive Sister 2 Alive Son 1 Alive Son 2 Alive Social History Tobacco Use Types Packs/Day Years Used Date Smoking Tobacco: Never Passive Smoke Exposure: Past Smokeless Tobacco: Never Tobacco Cessation:Counseling Given: Not Answered Comments:never have used Alcohol Use Standard Drinks/Week Comments Yes 3 (1 standard drink = 0.6 oz pur e alcohol) social drinker Comments No Sex and Gender Information Value Date Recorded Sex Assigned at Not on file 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 Gender Identity Not on file Sexual Orientation Not on file Occupation Industry Job Start Date Job End Date Not on file Not on file Not on file Not on file Last Filed Vital Signs Vital Sign Reading Time Taken Comments Blood Pressure 122/76 05/18/2024 11:02 AM CDT Pulse 58 05/18/2024 11:02 AM CDT Temperature 36.9 ??C (98.4 ??F) 05/18/2024 11:02 AM C DT Respiratory Rate 14 10/03/2020 9:14 AM SCHOOL BUS DRIVER Oxygen Saturation 98% 05/18/2024 11:02 AM CDT Inhaled Oxygen Concentration - - Weight 57.6 kg (127 lb) 05/18/2024 11:02 AM CDT Height 157.5 cm (5' 2 ) 05/18/2024 11:02 AM CDT Body Mass Index 23.23 05/18/2024 11:02 AM CDT Plan of Treatment Health Maintenance Due Date Last Done Comments HEPATITIS B VACCINES (1 of 3 - 19+ 3-dose series) 1988 FIT-DNA Q 3 years 2014 FIT/FOBT Q 1 year 2014 Flex Sig/CT Colonography Q 5 years 2014 ZOSTER VACCINE (1 of 2) 2019 CERVICAL CANCER SCREENING 12/26/20232020, 03/18/2015 (Previously completed), 10/18/2007 INFLUENZA VACCINE (#1) 2024 08/28/2023, 2021 BREAST CANCER SCREENING 07/02/2024 07/02/20 23, 12/21/2020, 03/18/2015 (Previously completed), Additional history exists Preventative Visit- Commercial 11/18/2024 1 , 07/02/2023, 09/04/2022, Additional history exists DTAP/TDAP/TD VACCINES (3 - T d or Tdap) 08/22/2030 08/22/2020, 12/14/2009 COLORECTAL SCREENING 10/03/2030 10/03/2020, 10/03/20 20 Colorectal Cancer Screening 10/03/2030 Procedures Procedure Name Priority Date/Time Associated Diagnosis Comments MAMMO SCREEN BILAT W OR WO CAD Routine 07/02/2023 6:00 PM CDT CERV/VAG CYTO SCREEN PAP W/HPV Routine 12/26/2020 9:06 AM SCHOOL BUS DRIVER Screening for malignant neoplasm of cervix Special screening examination for human papillomavirus (HPV) COLONOSCOPY REPORT 10/03/2020 9: 00 AM SCHOOL BUS DRIVER from Last 3 Months or Most Recently Relevant to Health Maintenance Results * MAMMO SCREEN BILAT W OR WO CAD (07/02/2023 6:00 PM CDT) Anatomical Region Laterality Modality Breast Bilateral Other us Tab Alonso MD MAMMO ORDERABLES Final Resu lt * CERV/VAG CYTO SCREEN PAP W/HPV (12/26/2020 9:06 AM SCHOOL BUS DRIVER) CASE REPORT Gynecologic Cytology Report ? Case: [id number] ? Authorizing Provider: ??Rosa Maria Celaya MD ? Collected: ? 12/26/2020 09:06 AM ? Ordering Location: ? [facility] WIRELESS DEVELOPMENT MANAGER [place] ?? Received: ?12/27/2020 08:05 AM ? [place] ? First Screen: ?Cielo Garcia ? Specimen: ?LB PAP TP AND HPV PROT, Endocervix ? 01/02/2021 3:20 PM [facility] Specimen Adequacy Satisfactory for evaluation, endocervical/hassan sformation zone component absent/insufficie nt 01/02/2021 3:20 PM [facility] Quality Control Expert Interpretation Negative for intraepithelial lesion or malignancy 01/02/2021 3:20 PM [facility] GynLMP 06/03/2017 Lo 01/02/2021 3:20 PM [facility] Quality Control Expert Educational Note 01/02/2021 3:20 PM [facility] Comment:The Pap test is a sc reening test used to aid in the detection of cervical cancer and its precursors. It should not be the sole means by which malignant and premalignant lesions are diagnosed. Both false negative and false positive results may occur. Results must be interpreted in the context of historic and current clinical information. EMBEDDED IMAGE 01/02/2021 3:20 PM [facility] Genital SWAB OF ENDOCERVIX / Unknown Collection / Unknown 12/26/2020 9:06 AM SCHOOL BUS DRIVER 12/27/2020 8:05 AM SCHOOL BUS DRIVER Rosa Maria Celaya MD PATHOLOGY/CYTOLOGY ORDERABLES Final Result [id number] [place] [address] * COLONOSCOPY REPORT (10/03/2020 9:00 AM SCHOOL BUS DRIVER) Narrative Procedure Note Bethel Carrillo MD - 10/03/2020 8:59 AM CST [facility] Endoscopy Patient Name: Mary [place] Procedure Date: 10/03/2020 Date of : 1970 Admit Type: Outpatient Age: 50 Attending MD: Bethel Carrillo MD Procedure: Colonoscopy Indications: Screening for colorectal malignant neoplasm. Patient has had one colonoscopy approximately 25 years ago. No findings per patient report. No family history. Providers: Bethel Carrillo MD Referring MD: Gian Gonsalves MD Medicines: Monitored Anesthesia Care Procedure: Informed consent was obtained for the procedure, including moderate sedation after risks were discussed. Based on the pre-procedure assessment, including review of the patient's medical history, medications, allergies, and review of systems, the patient was deemed to be an appropriate candidate for sedation. A timeout was performed. Continuous ECG monitoring, pulse oximetry, blood pressure monitoring, and direct observation were performed. The Colonoscope was introduced through the anus and advanced to the terminal ileum. The quality of the bowel preparation was excellent. Estimated Blood Loss: Estimated blood loss: none. Findings: The colon appeared normal. The terminal ileum appeared normal. Complications: No immediate complications. Impression: - The entire examined colon is normal. - The examined portion of the ileum was normal. - No specimens collected. Recommendation: - Repeat colonoscopy in 10 years for surveillance. Bethel Carrillo MD 10/03/2020 8:59:21 AM This report has been signed electronically. Number of Addenda: 0 Procedure Date: 10/03/2020 8:25:10 AM [address] [address] Bethel Carrillo MD GI PROCEDURE ORDERABLES Final Result from Last 3 Months or Most Recently Relevant to Health Maintenance Insurance [facility] BLUE ACCESS CHOICE Advance Directives For more information, please contact: [phone] * Full Code (Latest Code Status on File) Date Activated Date Inactivated Comments 10/03/2020 7:54 AM 10/03/2020 11:25 AM Care Teams Machine Bender Relationship Specialty Start Date End Date Gian Gonsalves MD [address] [place] [address] PCP - General Internal Medicine 12/12/15
--- OUTSIDE RECORDS SUMMARY | 2024-12-10 02:52 | XMS_ITS | Encounter Summary ---
Author Organization [facility] Address [address] [place] [address] Care Team Providers Care Spring Setter Name Role Phone Gian Gonsalves MD Primary Care Provider [phone] Encounter Details Date Type Department Care Team (Late st Contact Info) Description 07/11/2005 Outpatient Historical [facility] Internal Medicine - [place] [address] [place] [address] Gian Helton MD [address] [place] [address] Social History Tobacco Use Types Packs/Day Years Used Date Smoking Tobacco: Never Assessed Comments Unknown Sex and Gender Information Value Date Recorded Sex Assigned at Not on file 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
--- OUTSIDE RECORDS SUMMARY | 2024-12-10 02:52 | XMS_ITS | Encounter Summary ---
Author Organization [facility] Address [address] [place] [address] Care Team Providers Care Nurse Practitioner Adult Name Role Phone Gian Gonsalves MD Primary Care Provider [phone] Encounter Details Date Type Department Care Team (Late st Contact Info) Description 06/04/2001 Outpatient Historical [facility] Internal Medicine - [place] [address] [place] [address] Gian Helton MD [address] [place] [address] Social History Tobacco Use Types Packs/Day Years Used Date Smoking Tobacco: Never Assessed Comments Unknown Sex and Gender Information Value Date Recorded Sex Assigned at Not on file 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
--- OUTSIDE RECORDS SUMMARY | 2024-12-10 02:53 | XMS_ITS | Continuity of Care Document ---
Author Organization [facility] Address [address] [place] [address] Phone Care Team Providers Care Cash Shortage Investigator Name Role Phone Brie FRIAS, Kalpesh Unavailable Unavailable Allergies, Adverse Reactions, Alerts Substance Reaction Status Criticality PROCHLORPERAZINE MALEATE Active No Information PROCHLORPERAZINE EDISYLATE Active N o Information prochlorperazine Active No Informat ion TRIMETHOBENZAMIDE HCL Active No Inf ormation Medications Medication Instructions Dosage Effective Dates (start - stop) Status Comments ibuprofen 600 mg tablet take 1 tablet by oral route 3 times every day with food as needed 600 MG - Active FISH OIL (unknown strength) Not Available - Active Procedures Procedure Date POSTOP FOLLOW-UP VISIT RADEX HAND MINIMUM 3 VIEWS POSTOP FOLLOW-UP VISIT RADEX HAND MINIMUM 3 VIEWS RADEX HAND MINIMUM 3 VIEWS POSTOP FOLLOW-UP VISIT POSTOP FOLLOW-UP VISIT OFFICE/OUTPATIENT VISIT NEW Advance Directives Directive Yes / No Effective Date File Name No Information Encounters Encounter Description Practice Location Reason(s) For Visit Diagnoses Date Provider Providers Copied on Encounter [facility] , [address] [facility] [address], [place], [address], [place] tel:[phone] [facility] Displaced fracture of shaft of fourth metacarpal bone, right hand, subsequent encounter for fracture with routine healing 7 Brie Posey. [address] [facility] [address], [place], [place], [id number]. tel:[phone] [facility] , [address] [address], [place], [address], [place] tel:[phone] [facility] [place] Displaced fracture of shaft of fourth metacarpal bone, right hand, subsequent encounter for fracture with routine healing May-2 0-201 7 Petrocelli Kalpesh. [address], [place], [place], [id number]. tel:[phone] [facility] , [address] [address], [place], [address], [place] tel:[phone] [facility] [place] Displaced fracture of shaft of fourth metacarpal bone, right hand, initial encounter for closed fracture Abdifatah-2 0-201 7 Petrocelli Kalpesh. [address], [place], [place], [id number]. tel:[phone] [facility] , [address] [address], [place], [address], [place] tel:[phone] [facility] Displaced fracture of shaft of fourth metacarpal bone, right hand, initial encounter for closed fracture Abdifatah-0 7-201 7 Petrocelli Kalpesh. [address], [place], [place], [id number]. tel:[phone] [facility] , [address] [address], [place], [address], [place] tel:[phone] [facility] Displaced fracture of shaft of fourth metacarpal bone, right hand, initial encounter for closed fracture Abdifatah-0 7-201 7 Petrocelli Kalpesh. [address], [place], [place], [id number]. tel:[phone] OFFICE/OUTPAT IENT VISIT NEW [facility] , [address] [address], [place], [address], [place] tel:[phone] [facility] Right hand painClosed fracture of metacarpal of right hand, initial encounter March-3 0-201 7 Randi Phipps. [address], [place], [place], [address]. tel:[phone] Referring Provider: Gian Forte, [address] [place], [address] . tel:[phone] Family History Family Member Type Diagnosis Age At Onset No Information Payers Payer name Insurance type Covered alliance party ID Marquez garcia(s) Blue Access PPO E2 OT [id number] Social History Type Description Quantity Date Captured Comments Alcohol Use Details Caffeine Use Details Unknown Tobacco Use Status No Information Smoking Status No Information Sex Female Chief Complaint And Reason For Visit No Information Reason For Referral Reason For Referral No Information Plan Of Treatment Date Type Action Status Referral Ordered: RADEX HAND MINIMUM 3 VIEWS RT ordered Referral Ordered: RADEX HAND MINIMUM 3 VIEWS RT hand ordered History Of Present Illness Encounter Date Complaint History Of Prese nt Illness No Information Functional Status Date Functional Assessmen t No Information Instructions Date Instruction Additional Infor mation Rest, ice and elevate. Related t o Displaced fracture of shaft of fourth metacarpal bone, right hand, subsequent encounter for fracture with routine healing Report increased taty n, swelling, numbness or discoloration. Related to Displaced fracture of shaft of fourth metacarpal bone, right hand, subsequent encounter for fracture with routine healing Rest, ice and elevate. Related t o Displaced fracture of shaft of fourth metacarpal bone, right hand, subsequent encounter for fracture with routine healing Report increased taty n, swelling, numbness or discoloration. Related to Displaced fracture of shaft of fourth metacarpal bone, right hand, subsequent encounter for fracture with routine healing Report increased taty n, swelling, numbness or discoloration. Related to Displaced fracture of shaft of fourth metacarpal bone, right hand, initial encounter for closed fracture Home exercise program. Related t o Right hand pain Discussed treatment options Rela raymond to Right hand pain Assessments Type Assessment Date assessment Displaced fracture o f shaft of fourth metacarpal bone, right hand, subsequent encounter for fracture with routine healing Patient Care Teams Name Effective Dates (start - stop) Status Members No Information
== END 2024-12-03 10:47 | disposition home or self-care (01) ==
LOC: ANHSURGERY 10:50
PROVIDERS: Anesthesiology; Visit Provider Surgery Plastic and Reconstructive Surgery
DX: Z01.818 Encounter for other preprocedural examination (principal); Z41.1 Encounter for cosmetic surgery
CPT/HCPCS: 36415; 85014; 85018; 93005

== ENCOUNTER 2024-12-10 00:50 | Day surgery (SDC) | payer OTHER, SELFPAY ==
[2024-12-01 12:31] VITALS: BMI 22.5
--- NOTE | 2024-12-01 12:39 | PC.NURSE ---
Report to the Outpatient Waiting Room, entrance under the green pavilion located off [facility], at time _0600_ on date _[id number]_. Planned Procedure Time: _0730_.? Time changes happen often and if your time is changed the preop area will call you the afternoon before. - You and your visitor will be asked to self-screen and do not enter if you have any COVID symptoms. Please call surgeon if you need to reschedule. - A mask is optional within the hospital at this time. Patients may have clear liquids (water, carbonated beverages, clear teas, apple juice) until 3 hours prior to surgery with a maximum of 20 ounces. - No food from midnight until time of surgery and no smoking. This includes no chewing gum, candy or mints. Take only the following medications with a SIP of water on the morning of surgery: ___thyroid____ DO NOT STOP ANY OF YOUR OTHER PRESCRIPTION MEDICATIONS PRIOR TO SURGERY EXCEPT THE FOLLOWING Medications to discontinue per physician ___All vitamins and supplements. Date to take last lmxx___[id number]____ Please no make-up, nail swedish, hairspray, perfume, deodorant, or body powder the day of surgery.? No jewelry (including any body piercings) or valuables the day of surgery, leave them at home.? Please take a shower or bath the night before, or the morning of, surgery with an antibacterial soap.? Wear comfortable, loose fitting clothing.? - Jewelry must be removed prior to entering the operating room.? Rings and piercings that are not removed may be cut off. - The hospital will not accept responsibility for valuables.? - Please leave all valuables, including medications, at home the day of surgery. If you are going home after surgery, a licensed lead driver must drive you home.? - NO public transportation without another adult if you receive anesthesia. - We recommend that an adult stay with you for 24 hours following discharge. - We also recommend that you do not drive, make important decision, drink alcoholic beverages, or take any drugs that were not prescribed by your health care provider for at least 24 hours after your discharge time. Follow any additional instructions given to you from your surgeon. Telephone instructions given to _Stacie___and asked if any additional questions and then verbalized understanding. Patient advised to call surgeon office or pre surgery nurse liaison [phone] if any additional questions.
--- NOTE | 2024-12-09 15:54 | P.PNAN_ITS ---
Anes - Initial Pre Proc Eval Procedure: Operation Date: 12/10/24 07:30 Proposed Procedures p Abdominoplasty with Liposuction - Mohsen Wiggins MD Date/Time: 12/09/24 15:54 Surgeon: Mohsen Wiggins MD Pre Op Diagnosis: skin laxity Patient Data Age: 54 Gender: F Height: 1.57 m Weight: 55.9 kg Allergies Allergy/AdvReac Type Severity Reaction Status Date / Time prochlorperazine (From AdvReac Intermediate Other Verified 12/01/24 12:27 Compazine) trimethobenzamide (From AdvReac Intermediate Other Verified 12/01/24 12:27 Tigan) Home Medications ?Medication ?Instructions ?Recorded ?Confirmed ?Type emkupljr-nrv-panaj ac 400 1 tablet PO DAILY 12/01/24 12/01/24 History mcg-calcium carb 500 mg-vit K1 20 mcg tablet (One Daily Women 50 Plus(Vit K)) omega 4-jko-kpp-fish oil 1,000 mg 1 cap PO DAILY 12/01/24 12/01/24 History (120 mg-180 mg) capsule (Fish Oil) progesterone micronized 100 mg 100 mg PO HS 12/01/24 12/01/24 History capsule thyroid (pork) 15 mg tablet 15 mg PO DAILY 12/01/24 12/01/24 History (Boncarbo Thyroid) thyroid (pork) 30 mg tablet 30 mg PO DAILY 12/01/24 12/01/24 History ([place]carbo Thyroid) turmeric 400 mg capsule 400 mg PO DAILY 12/01/24 12/01/24 History Patient hx anesthesia problems: none Family hx anesthesia problems: none Results Review: All pre-operative results and documents have been reviewed as part of the pre- operative evaluation. [facility] Past Medical History Medical History (Updated 12/09/24 @ 15:54 by Artemio Holliday DO) Hypothyroidism Social History Social History Smoking status: Never smoker Alcohol intake: current Drinks per week: 4 Substance use type: marijuana Other substance usage details: Once in awhile Living arrangements: with family Spiritual care concerns: No Anes - Eval Final PreProcedure Day of Procedure 12/09/24 15:54 Patient weight: normal Heart: regular rate and rhythm Lungs: clear to auscultation and normal air movement Airway: Mallampati scale class II Neurological: alert and oriented Last oral intake: >/= 8 hours ASA classification: II Emergent: no Anesthetic plan: proceed Anesthesia type and monitoring: general ETT and standard monitoring Results Review: All pre-operative results and documents have been reviewed as part of the pre- operative evaluation. Informed Consent: The patient's anesthetic plan and its attendant risks and benefits were discussed with the patient/family/POA. Questions were solicited and answers provided to the satisfaction of the patient/family/POA.
[2024-12-10] VITALS (10 sets, daily range): BP systolic 126–150; BP diastolic 73–92; PULSE 71–87; RESP 14–22; TEMP 37.2; O2SAT 98–100; BMI 23.2
[2024-12-10 06:44] LABS: Urine Cotinine NEGATIVE
[2024-12-10] MEDS: LACTATED RINGERS 1,000 ML 30 ML IV CONT ×2 (07:15→12:24)
[2024-12-10] MEDS: SCOPOLAMINE 1 MG PATCH 1 PATCH TRANSDERM (07:15)
--- NOTE | 2024-12-10 07:17 | WPDHPUPDATE1 ---
History and Physical Update Update Date/Time: 12/10/24 07:17 History and Physical has been reviewed, including an updated exam of the patient. There are NO changes in the patient's condition. Risks, benefits, and alternatives have been discussed and questions answered. Patient agrees to proceed with procedure.
--- NOTE | 2024-12-10 07:17 | W.PM.PROC2 ---
Procedure Note - Detailed Date of Procedure 12/10/24 Pre-op Diagnosis skin laxity Post-op Diagnosis Same Procedure Performed Progressive tension abdominoplasty with suction lipectomy Surgeon Mohsen Wiggins MD Anesthesia General Findings Tissue removed: 862.6 grams Lipoaspirate: 2,100 cc Description of Procedure They are here today for the above procedures. Previously and again today the risks, benefits, alternatives were discussed in extensive detail. I wanted them to be very realistic about the risks involved as well as expectations. We discussed aftercare and what to monitor for. She states she was aware that I am out of town next week and is aware of our protocols for coverage. This was discussed again today. I was very upfront about the risks of wound breakdown leading to loss of skin, open wounds, and need for additional procedures with permanent abdominal deformity. We discussed DVT/PE risks and management. Made sure answered all of their questions to their satisfaction today and consent was obtained. They were marked in the preoperative holding area with their verification. The patient was taken to the operating room. Anesthesia was provided by anesthesiology. A Moscoso catheter was started. Posterior Placed prone on the operating room table with care taken to protect from injury. Prepped and draped in a standard sterile fashion. A surgical time-out was taken. Stab incisions were made and tumescent solution was infiltrated. Once adequate time was allowed for hemostasis a 5mm basket and 4mm aurora cannula were utilized to complete suction lipectomy based on S.A.F.E. technique in multiple planes and passes. Suction lipectomy continued to result based on pre-operative planning, intra-operative observation, and rolling pinch test which were in full agreement. Anterior Patient was then placed supine with care taken to protect from injury. I placed the patient in a flexed position to verify the upper and lower markings would reach. I then placed supine. A thorough abdominal examination was completed. Stab incisions were made and tumescent solution infiltrated. Stab incisions were made and tumescent solution was infiltrated. Once adequate time was allowed for hemostasis a 5mm basket and 4mm aurora cannula were utilized to complete suction lipectomy based on S.A.F.E. technique in multiple planes and passes. Suction lipectomy continued to result based on pre-operative planning, intra-operative observation, and rolling pinch test which were in full agreement. A 10 blade was used to make the upper incision. I continued dissection down to the level of fascia. Elevated just what was necessary for repair of the diastasis. I then again flexed the bed to verify the upper skin flap would reach the lower markings without tension. Once verified I placed her supine once again and a 10 blade used to make the lower incision. I elevated up to level the umbilicus and left the umbilicus intact on a well-vascularized stalk. The intervening tissue was removed. A 2 mm blunt cannula with 0.5% bupivacaine was injected deep to the fascia bilaterally. I plicated the diastasis recti using 0 PDO Stratafix barbed suture. This was in 2 separate layers using 2 separate sutures as well. After the patient was flexed (below) plicated the fascia with 0 PDO Stratafix in two separate layers. The patient was flexed and starting from superior to inferior began plication using 2-0 Vicryl to obliterate all space in a standard progressive tension fashion. At the umbilicus I marked out the location of the skin and inset this with 3-0 Monocryl and 4-0 Vicryl. I continued the remainder of the plication using 2-0 Vicryl until I reached my lower planned scar line. I trimmed any excess skin of the upper flap making sure this was a tension-free closure. 15 Jeanmarie drain was placed. I then approximated using a 3 point suture with 2-0 Vicryl followed by 2-0 PDO Stratafix, 3-0 Stratafix ,running subcuticular 4-0 Monocryl, and tissue glue. Fluffs and an abdominal binder were placed. The patient was transferred to the bed in a flexed position. Awoken and taken to the PACU without difficulty. All instrument and sponge counts were correct at the end of the case. Estimated Blood Loss 75 Drains Yes (15 Jeanmarie) Packing No Pathology None sent Complications No immediate complications Condition Stable Disposition PACU
[2024-12-10] MEDS: TRANEXAMIC ACID 1,000MG/ISO100 1,000 MG/100 ML BAG 200 MG IVPB (07:25)
[2024-12-10] MEDS: ceFAZolin 2 GM/D5W 50 ML 2 GM/50 ML BAG IVPB (07:32)
[2024-12-10] MEDS: LACTATED RINGERS IRRIG 1,000 ML, LIDOCAINE 1% LOCAL INJ 50 ML, EPINEPHrine HCL INJ 1 MG... INFILTRATE (08:10)
[2024-12-10] MEDS: BUPIVACAINE/EPINEPHRINE 0.5% 30 ML VIAL 60 ML INFILTRATE (09:03)
[2024-12-10] MEDS: oxyCODONE HCL (*CRX) 5 MG TAB IR PO (13:14)
--- OUTSIDE RECORDS SUMMARY | 2024-12-11 03:43 | XMS_ITS | Data Portability ---
Author Organization [facility], Main Office Address [address] [place] [address] Assessment Encounter Date Assessment Date Assessment LastModified [...] clinical information: normal None given Not Available [employer] [address], [place], [address], 07/04/2023 11:20:28 07/02/20 23 07/04/2023 THINP REP TIS PAP AND HPV MRNA E6/E7 WITH REFLE X TO HPV 16,18 /45 LMP: normal NONE GIVEN Not Available [address], [address], 07/04/2023 11:20:28 07/02/20 23 07/04/2023 THINP REP TIS PAP AND HPV MRNA E6/E7 WITH REFLE X TO HPV 16,18 /45 prev. Pap: normal NONE GIVEN Not Available [address] [place], [address], 07/04/2023 11:20:28 07/02/20 23 07/04/2023 THINP REP TIS PAP AND HPV MRNA E6/E7 WITH REFLE X TO HPV 16,18 /45 prev. BX: normal NONE GIVEN Not Available [address], [address], 07/04/2023 11:20:28 07/02/20 23 07/04/2023 THINP REP TIS PAP AND HPV MRNA E6/E7 WITH REFLE X TO HPV 16,18 /45 source: normal Vagin a Not Available [address], [address], 07/04/2023 11:20:28 07/02/20 23 07/04/2023 THINP REP TIS PAP AND HPV MRNA E6/E7 WITH REFLE X TO HPV 16,18 /45 statement of adequacy: normal SATIS FACTO RY FOR EVALU ATION Not Available [address], [address], 07/04/2023 11:20:28 07/02/20 23 07/04/2023 THINP REP TIS PAP AND HPV MRNA E6/E7 WITH REFLE X TO HPV 16,18 /45 interpretati on/result: normal Cytol ogy Resul ts: Negat chanel for intra epith elial lesio n or crystal strong . Not Available [address] [place], [address], 07/04/2023 11:20:28 07/02/20 23 07/04/2023 THINP REP TIS PAP AND HPV MRNA E6/E7 WITH REFLE X TO HPV 16,18 /45 comment: normal This Pap test has been evalu ated with comppartha sullivan [employer] . Not Available [address] [address] [place], [address], 07/04/2023 11:20:28 07/02/20 23 07/04/2023 THINP REP TIS PAP AND HPV MRNA E6/E7 WITH REFLE X TO HPV 16,18 /45 cytotechnolo gist: normal MEF, CT( CP) CT scree tiffany locat ion: [place] [address] [address] [address] [place] [address] Not Available [address] [address] [place], [address], 07/04/2023 11:20:28 07/02/20 23 07/04/2023 THINP REP [...] clini huma infor matio n. Not Available [address] [address], [place], [address], 07/04/2023 11:20:28 07/02/20 23 07/04/2023 THINP REP [...] infor tamica pfeiffer e refer to http: //[facility] jasmina garcia.annabelle stdia gnost ics.c om/fa q/FAQ 129v1 (This link if provi ded for infor darshana garcia/ educa nicholas richard purpo ses only. ) Not Available [facility] [address] [address], [place], [address], 07/04/2023 11:20:28 07/02/20 23 07/02/2023 MAMMO , scree tiffany, bilat eral, w/ CAD No observ ation record ed. [address], [place], [address], 07/08/2023 14:33:20 10/23/20 23 10/23/2023 bone densi ty RAD rmuckerman [facility] [facility] [id number] 11/03/2023 18:58:20 07/15/20 24 07/08/2024 MAMMO , scree tiffany, bilat eral, w/ CAD No observ ation record ed. [address], [place], [address], 07/30/2024 04:02:15 Result Notes None recorded. Problems Name Problem SNOMED Code Status Onset Date Resolution Date Notes Provider Name and Address Organization Details Recorded Time Reduced libido 7282665 Active 2022 Liz John [facility] 3 09:45:43 Menorrhagia 189180569 Active 2022 [facility] 09:45:51 Osteopenia 354963851 Active 2022 [place] [address], [place], [address], [facility] 18:56:49 Problem Notes None recorded. Procedures Surgical History Date Name Laterality Status Provider Name and Address Organization Details Recorded Time 04/12/20 Date of Last Mammogram completed [facility] 06/25/2023 10:14:49 04/12/20 Date of Last Pap Smear completed [facility] 06/25/2023 10:15:42 endometrial ablation completed [facility] 06/25/2023 10:20:34 section completed [facility] 06/25/2023 10:20:43 hysteroscopy completed [facility] 06/25/2023 10:20:54 Dilation and curettage completed [facility] 06/25/2023 10:21:05 Imaging Results Imaging Date Name Status LastModified by Organiz ation Details LastModified Time 07/02/2023 MAMMO, screening, bilateral, w/ CAD completed [place] [address] [facility] [address], [place], [address], 07/08/2023 14:33:20 10/23/2023 bone density completed [facility] [employer] [facility] [id number] 11/03/2023 18:58:20 07/08/2024 MAMMO, screening, bilateral, w/ CAD active [place] [address], [place], [address], 07/30/2024 04:02:15 Procedure Notes None recorded. Medical Equipment None Reported. Allergies Allergen ID Allergen Name Allergen Category Reaction Reaction Severity Criticality Documentation Date Start Date Code Code System Note Provider Name and Address Organization Details Recorded Time [id number] 29b50 Compazine medicatio n other Not available Not available 06/25/2023 61695 6 [facility] bells palsy Not Available Not Available Not Available [id number] 29b50 Tigan medicatio n other Not available Not available 06/25/2023 54610 8 RxNorm bells palsy Not Available Not Available Not Available Medications Name Sig Start Date Stop Date Status Note LastModified by Organization Details LastModified Time spironolacto ne 100 mg tablet Take 1 tablet every day by oral route. 07/01 completed Not Available Not Available Not Available [place] Thyroid 15 mg tablet active Not Available Not Available No t Available [place] Thyroid 30 mg tablet Take 1 tablet [...] Updated DateTime 07/02/2023 157.48 cm 22.9 kg/m2 94783.05 g 120 mm[Hg] 62 mm[Hg] [facility] 10:31:13 Social History Question Answer Notes LastModified by Organizat ion Details LastModified Time Tobacco Smoking Status Never Smoker [facility] 06/25/2023 10:19:55 What Is Your Level Of [...] Diagnosis Note [address] Main Office [address] [facility] [address] [place] [address] 07/02/2023 10:24:41 07/02/2023 11:11:48 Health Concerns Section Related Observation LastModified by Organization Detai ls LastModified Time None Recorded Concern Status LastModified by Organization Details LastModified Time None Recorded Advance Directives Directive None Recorded Payers Encounter Date Sequence Insurance Name Policy Number Policy Warren Covered Member ID Warren Member ID Guarantor Name 07/02/2023 1 [place] [employer] [id number] Mary Dawn [id number] Notes Date Note Type Note Provider Name and Address Organization Details Recorded Time 07/02/2023 text/html Annual GYNReport ed bypatient.History: no gynecologic complaints Urinary symptoms:no hematuria; no incontinence Vulva:no genital lesion Vagina:normal vaginal discharge Breast:no breast pain; no breast lump; no nipple discharge Sexual complaints:no sexual complaints; no pain during intercourse; normal libido Menopausal Symptoms:no menopausal symptoms; normal vaginal lubrication Mary Brown [facility] 07/02/2023 22:09:56 OBGyn Episode Ob Episode Information Episode Created Date Number of Fetuses Patient Bloodtype Patient rh Status Prepregnancy Weight lbs Domestic Partner Domestic Partner Phone Father Name [employer] Supervisor Status 06/25/20 23 1 CLOSED Fetus Data [...] Domestic Partner Domestic Partner Phone Father Name [place] Supervisor Status 06/25/20 23 1 CLOSED Fetus Data [...] Domestic Partner Domestic Partner Phone Father Name [place] Supervisor Status 06/25/20 23 1 CLOSED Fetus Data [...]
== END 2024-12-10 14:28 | disposition home or self-care (01) ==
PROVIDERS: Visit Provider Surgery Plastic and Reconstructive Surgery
PROC: (CPT 15830; principal; 2024-12-10 07:30)
DX: Z41.1 Encounter for cosmetic surgery (principal); L57.4 Cutis laxa senilis; E03.9 Hypothyroidism, unspecified; F12.90 Cannabis use, unspecified, uncomplicated; Z98.890 Other specified postprocedural states; Z82.49 Family history of ischemic heart disease and other diseases of the circulatory system
CPT/HCPCS: 15830; 15847; 15877; 80307; A9270; J0171; J0690; J1100; J1171; J2003; J2250; J2405; J2704; J3010; J7120